=== PATIENT | male | born 1970 | race Caucasian/White ===

== ENCOUNTER 2018-03-15 12:55 | Day surgery (SDC) | payer OTHER, SELFPAY ==
--- NOTE | 2018-03-15 | PATH_ITS ---
[facility] Accession Number: [id number] . 01 Material submitted: . PART A: PROXIMAL RIGHT COLON PART B: RECTAL POLYP . 02 Diagnosis: A. Proximal Right Colon: Tubular adenoma. . B. Rectum, Polyp: Hyperplastic polyp. V/03/16/2018 . 02 Electronically signed: . Nathan Rivera MD, PhD, Pathologist NPI- [id number] . 01 Gross description: . Received two formalin-filled containers, both labeled with the patient's name: . A. In a container labeled proximal right colon, are three 0.3-0.5 cm portions of tissue and/or debris, entirely submitted in cassette A. B. In a container labeled rectal polyp, the specimen consists of a 0.3 cm portion of tissue, entirely submitted in cassette B. ([id number]) /FRR . 02 Pathologist provided ICD-10: D12.6 . 02 CPT . 074629, [id number] [facility]formed at: [facility] [address] [facility], [place], [place] [id number] MD Jason Day MD Phone: [phone] Performed at: 02 [facility] [address] [place], [place] [id number] MD Louise Stark MD Phone: [phone]
[2018-03-15] MEDS: SODIUM CHLORIDE 0.9% 1,000 ML 100 ML IV (13:40)
--- NOTE | 2018-03-15 13:56 | SUR.PREOP ---
pt became hypotensive and bradycardic affter insert of IV. fluid bolus of 200 cc improved color and vial signs. BP taken q 5 min. lowest was 110/66, lowest HR was 54. return to normotensive and normal heart within 10 minutes of onset.
[2018-03-15 13:58] VITALS: BP 134/88; PULSE 83; RESP 15; TEMP 36.6; O2SAT 96; BMI 36.6
--- NOTE | 2018-03-15 14:24 | PM.HP.1 ---
History of Present Illness Date Patient Seen: 03/15/18 Time Patient Seen: 14:24 Chief complaint: [id number] Narrative: Wonderful 47-year-old gentleman who presents for colonoscopy. He reports that he has had some left lower quadrant pain off and on for several months and is also seeing some bright red blood per rectum. He does not have any known family history of colon cancer. He has never had a colonoscopy before. He denies any unexplained weight loss or constitutional symptoms. Patient History Social History household members: significant other Family & Social History Social History: household members significant other Review of Systems Review of Systems All systems reviewed & are unremarkable except as noted in HPI and below Exam Vital Signs (past 8 hours): - 03/15/18 13:58 Temperature 98 F Pulse Rate 83 Respiratory Rate 15 Blood Pressure 134/88 Pulse Oximetry 96 Oxygen Delivery Method Room Air Narrative Exam Narrative: Very pleasant gentleman in no obvious distress HEENT: Normocephalic and atraumatic, pupils equal round reactive to light accommodation with anicteric sclera Lungs: Clear to auscultation bilaterally Heart: Regular rate and rhythm without murmur rub or gallop Abdomen: Soft, tender to palpation in left lower quadrant. No rebound guarding Hill type Rovsing sign or peritoneal signs. Extremities: Warm well perfused Assessment & Plan Plan: Assessment/Plan Narrative: Pleasant 47-year-old gentleman who is having left lower quadrant pain and some bright red blood per rectum now for quite some time. We discussed the risks and benefits of colonoscopy the patient has expressed desire to complete the procedure today.
[2018-03-15] MEDS: fentaNYL 250 MCG/5 ML INJ IV (14:47)
[2018-03-15] MEDS: MIDAZOLAM 5 MG/5 ML VIAL IV (14:48)
--- NOTE | 2018-03-15 14:53 | PM.OP.1 ---
Operative Date/Time/Diagnoses Date of procedure: 03/15/18 Time of procedure: 14:53 Pre-op diagnosis: Left lower quadrant pain Blood in stool Post-op diagnosis: same Procedure & Clinicians Procedure: Colonoscopy to the cecum with polypectomy x2 and biopsy Same procedure as scheduled: Yes Indications: No prior colonoscopy Surgeon: Kayli Hirsch Anesthesia Type: Sedation (Versed 8 mg; fentanyl 250 mcg) Operative Notes Findings: 1. Excellent prep 2. Pedunculated polyp just distal to the ileocecal valve-approximately 4 mm and removed with snare cautery and retained for pathology 3. Submucosal lipoma immediately adjacent to the above-mentioned polyp. The area was biopsied with cold forceps and retained for pathology 4. 3 mm sessile polyp in the rectal vault. Removed with cold forceps and retained for pathology 5. No clear etiology for left lower quadrant pain 6. Mild diverticulosis visualized in the sigmoid colon only. No evidence of inflammation. No false passages appreciated 7. Enlarged internal and external hemorrhoids. The bulging veins are present at the actual mucosal junction so it is difficult to tell if they originate above or below this junction. This is almost certainly the source of his recent episodes of rectal bleeding. Procedure in detail: After obtaining informed consent, the patient was brought to the GI suite and placed in the left lateral decubitus position on the examination table. After placement of appropriate monitors, the patient was given incremental doses of Versed and Fentanyl until an appropriate level of sedation was achieved. A time out was held per SCOAP protocol. A digital rectal examination was performed and did not reveal any masses or obstructing lesions. The colonoscope was gently passed into the patient's anus and the entire colon navigated to the level of the cecum with minimal difficulty. Once in the cecum, the scope was withdrawn being sure to go before and beyond all mucosal folds and prominences and get an excellent examination. The findings are noted above. At the level of the rectal vault, the scope was retroflexed and the internal anal canal was examined. The scope was straightened and air aspirated from the colon. The instrument was removed from the patient's body and the procedure was concluded. The patient was allowed to awaken from sedation without difficulty and taken to the post-anesthesia care unit in good condition. Total sedation time was 26 min Total withdrawal time was 14 min 14 sec Complications: none Condition: stable Disposition: PACU Plan for aftercare: 1. Discharge to home 2. Plan for next colonoscopy in 5 years or sooner depending upon final pathology. 3. We will contact you with pathology results and additional recommendations
[2018-03-15 15:13] VITALS: BP 122/84; PULSE 94; RESP 94; O2SAT 94
[2018-03-15 15:19] VITALS: BP 112/79; PULSE 87; RESP 18; O2SAT 96
[2018-03-15 15:23] VITALS: BP 118/79; PULSE 82; RESP 15; TEMP 36.7; O2SAT 95
[2018-03-15 15:44] VITALS: BP 126/75; PULSE 82; RESP 15; TEMP 36.8; O2SAT 94
== END 2018-03-15 15:47 | disposition home or self-care (01) ==
PROVIDERS: PCP Family Medicine; Visit Provider Surgery
PROC: 0DJD8ZZ Inspection of Lower Intestinal Tract, Via Natural or Artificial Opening Endoscopic (ICD-10-PCS; CPT 45378; principal; 2018-03-15 14:00)
DX: K64.4 Residual hemorrhoidal skin tags (principal); K57.30 Diverticulosis of large intestine without perforation or abscess without bleeding; K64.8 Other hemorrhoids; D12.6 Benign neoplasm of colon, unspecified
CPT/HCPCS: 45385; 45380; 99152; 99153; J2250; J3010

== ENCOUNTER → 2019-03-26 13:33 | Outpatient (CLI) | payer OTHER, SELFPAY ==
--- NOTE | 2019-03-26 | DI.MRI.S_ITS ---
PROCEDURE: MR LUMBAR SPINE WO CON INDICATIONS: Radiculopathy, lumbosacral region TECHNIQUE: Noncontrast sagittal T1 spin echo and T2 fast echo, sagittal STIR, axial T1 and T2 fast spin echo through the lumbar spine. In cases with scoliosis, additional coronal T2 fast spin echo may be performed. COMPARISON: [facility] Harmony Perkins, CR, XR LUMBAR SPINE WITH OLBIQUES PLUS FLEXION EXTENSION, 03/22/2019, 11:28. FINDINGS: Image quality: Excellent. Alignment and Curvature: 5 lumbar type vertebral bodies are present by plain film. There is mild grade 1 retrolisthesis of L2 on L3. Mild grade 1 anterolisthesis of L4 on L5 and L5 on S1. Bone Marrow: Marrow is of normal overall signal. No acute vertebral body compression fractures. Mild reactive signal within the endplates adjacent to the the L2-L3 and L4-L5 intervertebral discs. Spinal Cord: Conus medullaris terminates at the mid L1 level. Visualized cord demonstrates normal signal and size. Paraspinous Soft Tissues: No paravertebral masses. L1-L2: Normal appearance. L2-L3: Moderate disc height loss and desiccation. Moderate diffuse disc bulge with superimposed central protrusion. Mild facet and ligamentum flavum hypertrophy. Mild epidural lipomatosis. Severe canal stenosis. Mild bilateral foraminal stenosis. L3-L4: Mild diffuse disc bulge. Mild facet and ligamentum flavum hypertrophy. Mild epidural lipomatosis. Mild canal stenosis. Mild bilateral foraminal stenosis. L4-L5: Mild disc height loss and desiccation. Mild diffuse disc bulge. Moderate facet hypertrophy. Mild ligamentum flavum hypertrophy. Moderate canal stenosis. Moderate subarticular foraminal stenosis bilaterally. L5-S1: Moderate disc height loss and desiccation. Mild diffuse disc bulge superimposed small central protrusion. Mild bilateral facet hypertrophy. Mild canal stenosis. Moderate to severe left foraminal stenosis. Moderate right subarticular foraminal stenosis. Mild left L5 nerve root compression. IMPRESSION: 1. Multilevel degenerative disc and facet disease, as well as ligamentum flavum hypertrophy and epidural lipomatosis. 2. Multilevel canal stenoses, worst at L2-L3, where there is severe canal stenosis. 3. Multilevel foraminal stenoses, worst on the left at L5-S1 where there is mild associated L5 nerve root compression. Recommend correlation with clinical symptoms to ascertain relevance of this finding. Dictated by: Karma Singletary M.D. on 03/27/2019 at 9:01 Approved by: Karma Singletary M.D. on 03/27/2019 at 9:05
== END ==
PROVIDERS: PCP Family Medicine; Referring Provider Family Medicine; Visit Provider Physical Medicine & Rehabilitation Pain Medicine
DX: M51.16 Intervertebral disc disorders with radiculopathy, lumbar region (principal); M51.17 Intervertebral disc disorders with radiculopathy, lumbosacral region; M48.061 Spinal stenosis, lumbar region without neurogenic claudication; M48.07 Spinal stenosis, lumbosacral region; E88.2 Lipomatosis, not elsewhere classified
CPT/HCPCS: 72148